=== PATIENT | female | born 1960 | race Caucasian/White ===

== ENCOUNTER 2021-10-17 18:32 | Inpatient (IN) | payer OTHER ==
[~2021-10-17] VITALS: Ht 165.1 cm; Wt 77.0 kg
[~2021-10-17 18:32] MED LIST: HYDR-1421
[2021-10-17 20:26] LABS: Albumin 2.1 g/dL (3.4-5.0); Calcium 8.7 mg/dL (8.5-10.1); Magnesium 2.6 mg/dL (1.6-2.6)
[2021-10-17 20:35] LABS: Hematocrit 38.1 % (36.0-46.0); Hemoglobin 13.1 g/dL (12.2-16.2); Mean Corpuscular Hemoglobin 32.1 pg (28.0-32.0); Mean Corpuscular Hgb Conc. 34.5 g/dL (32.0-36.0); Mean Corpuscular Volume 93.1 fL (80.0-100.0); Red Blood Cells 4.09 10^6/uL (4.0-5.20); White Blood Cell 14.3 10^3/uL (4.4-10.8)
[2021-10-17 20:37] LABS: Acetaminophen < 2.0 ug/mL (10-30); Salicylate < 1.7 mg/dL (2.8-20.0)
[2021-10-17 20:41] LABS: BUN/Creatinine Ratio 23.7; Bilirubin, Total 23.9 mg/dL (0.2-1.0); Total Protein 6.3 g/dL (6.4-8.2)
[2021-10-17 20:48] LABS: Red Cell Distribution Width 24.3 % (11.8-14.3)
[2021-10-17 20:49] LABS: Basophils % (manual) 0 (0.0-2.0); Blast Cells 0; Metamyelocytes % 0; Myelocytes % 0; Promyelocytes % 0; Reactive Lymphocytes 0
[2021-10-17 20:52] LABS: Band Neutrophils % (manual) 1; Eosinophils % (manual) 7 (0-7); Lymphocytes % (manual) 31 (10.0-50.0); Monocytes % (manual) 16 (0-12)
[2021-10-17 21:02] LABS: INR 4.51 (0.9-1.15)
[2021-10-17] MEDS ORDERED: ACETYLCYSTEINE IV ONE ×2 (22:00→23:00)
[2021-10-17] MEDS ORDERED: D5W 5% IV ONE ×2 (22:00→23:00)
[2021-10-18] MEDS: D5W 5% IV SCH ×2 (03:41→19:30)
[2021-10-18] MEDS: ACETYLCYSTEINE IV SCH ×2 (03:41→19:30)
[2021-10-18] MEDS ORDERED: MIDAZOLAM HCL 5 MG/ML-1ML VIAL IV ONE (10:45)
[2021-10-18] MEDS: MIDAZOLAM DRIP 50 mg/50mL 50 ML IV SCH (10:45)
[2021-10-18 11:45] LABS: Basophils # (auto) 0.1 10 ^3/uL (0-0.2); Basophils % (auto) 0.8 % (0.0-2.0); Eosinophils # (auto) 0.2 10 ^3/uL (0-0.8); Eosinophils % (auto) 1.7 % (0.0-7.0); Hematocrit 35.9 % (36.0-46.0); Hemoglobin 12.7 g/dL (12.2-16.2); Mean Corpuscular Hemoglobin 33.3 pg (28.0-32.0); Mean Corpuscular Hgb Conc. 35.3 g/dL (32.0-36.0); Mean Corpuscular Volume 94.3 fL (80.0-100.0); Neutrophils # (auto) 7.4 10 ^3/uL (1.6-8.6); Neutrophils % (auto) 52.4 % (37.0-80.0); Nucleated Red Blood Cells % 0.2 %; Red Blood Cells 3.81 10^6/uL (4.0-5.20); Red Cell Distribution Width 23.7 % (11.8-14.3); White Blood Cell 14.1 10^3/uL (4.4-10.8)
[2021-10-18 11:47] LABS: Lymphocytes # (auto) 3.9 10 ^3/uL (0.4-5.4); Lymphocytes % (auto) 27.7 % (10.0-50.0); Monocytes # (auto) 2.5 10 ^3/uL (0-1.3); Monocytes % (auto) 17.4 % (0.0-12.0)
[2021-10-18 12:08] LABS: Albumin 1.7 g/dL (3.4-5.0); BUN/Creatinine Ratio 25.6; Calcium 8.4 mg/dL (8.5-10.1); Potassium 3.8 mmol/L (3.5-5.1)
[2021-10-18 12:09] LABS: Magnesium 2.6 mg/dL (1.6-2.6)
[2021-10-18 12:17] LABS: Bilirubin, Total 23.9 mg/dL (0.2-1.0); Total Protein 5.7 g/dL (6.4-8.2)
[2021-10-18 12:58] LABS: Alcohol, Urine < 3.0 mg/dL (0-10); Barbiturate Scree,Urine NEGATIVE (NEGATIVE); Benzodiazephine Screen, Urine NEGATIVE (NEGATIVE); Cannabinoid Screen, Urine NEGATIVE (NEGATIVE); Cocaine Screen, Urine NEGATIVE (NEGATIVE); Opiate Scree,Urine NEGATIVE (NEGATIVE)
[2021-10-18 13:23] LABS: Amphetamine Screen, Urine POSITIVE (NEGATIVE); Phencyclidine Screen, Urine NEGATIVE (NEGATIVE)
[2021-10-18 14:40] LABS: Partial Thromboplastin Time 54.3 sec (23.6-33.0)
[2021-10-18 14:45] LABS: INR 5.2 (0.9-1.15)
[2021-10-18] MEDS ORDERED: MORPHINE SULFATE INJECTION 2 MG/ML SYRG IV PRN (19:45)
[2021-10-18] MEDS ORDERED: NITROGLYCERIN 0.4 MG SL TAB SL PRN (19:45)
[2021-10-18] MEDS ORDERED: SODIUM CHLORIDE 0.9% 1,000 ML IV ONE (19:45)
[2021-10-18] MEDS ORDERED: hydrALAZINE HCL 20 MG/ML VL IV PRN (20:15)
[2021-10-18] MEDS: ALBUMIN 25% 100 ML IV SCH (22:21)
[2021-10-19] VITALS (39 sets, daily range): BP systolic 108–160; BP diastolic 36–70
[2021-10-19] MEDS: ALBUMIN 25% 100 ML IV SCH ×2 (04:19→14:00)
[2021-10-19] MEDS: PANTOPRAZOLE 40 MG/10 ML VIAL INJ IV SCH (09:20)
[2021-10-19] MEDS: levoFLOXacin 250MG 50 ML IV SCH (09:20)
[2021-10-19] MEDS: MIDAZOLAM DRIP 50 mg/50mL 50 ML IV SCH (10:45)
[2021-10-19 10:52] LABS: Basophils # (auto) 0.1 10 ^3/uL (0-0.2); Basophils % (auto) 0.4 % (0.0-2.0); Eosinophils # (auto) 0.1 10 ^3/uL (0-0.8); Eosinophils % (auto) 0.7 % (0.0-7.0); Hematocrit 33.3 % (36.0-46.0); Hemoglobin 11.7 g/dL (12.2-16.2); Lymphocytes # (auto) 2.5 10 ^3/uL (0.4-5.4); Lymphocytes % (auto) 19.9 % (10.0-50.0); Mean Corpuscular Hemoglobin 32.8 pg (28.0-32.0); Mean Corpuscular Volume 93.5 fL (80.0-100.0); Monocytes # (auto) 2.1 10 ^3/uL (0-1.3); Monocytes % (auto) 17.2 % (0.0-12.0); Neutrophils # (auto) 7.7 10 ^3/uL (1.6-8.6); Neutrophils % (auto) 61.8 % (37.0-80.0); Nucleated Red Blood Cells % 0.2 %; Red Blood Cells 3.56 10^6/uL (4.0-5.20); White Blood Cell 12.5 10^3/uL (4.4-10.8)
[2021-10-19 11:03] LABS: Albumin 2.8 g/dL (3.4-5.0); Potassium 4.1 mmol/L (3.5-5.1)
[2021-10-19 11:18] LABS: BUN/Creatinine Ratio 27.1; Bilirubin, Total 25.6 mg/dL (0.2-1.0)
[2021-10-19 11:48] LABS: Red Cell Distribution Width 24.3 % (11.8-14.3)
[2021-10-19] MEDS ORDERED: DEXTROSE 50% SYRINGE 50 ML IV ONE (12:02)
[2021-10-19] MEDS ORDERED: DEXTROSE 10% 1,000 ML IV ONE (13:30)
[2021-10-19] MEDS: LACTULOSE 10g/15ml SOLN PR SCH ×2 (15:20→23:11)
[2021-10-19] MEDS ORDERED: phytonadione 10 MG in SODIUM CHL 0.9% 50 ML IV ONE (18:00)
[2021-10-19] MEDS: FOLIC ACID 1 MG, MULTIPLE VITAMIN 10 ML, MAGNESIUM SULF SDV 50% 8 MEQ, THIAMINE INJ 100... INJ SCH ×5 (20:16)
[2021-10-20] VITALS (15 sets, daily range): BP systolic 116–150; BP diastolic 51–78
[2021-10-20] MEDS ORDERED: DEXTROSE 10% 250 ML IV ONE ×2 (00:41→00:43)
[2021-10-20 04:44] LABS: Hematocrit 28.7 % (36.0-46.0); Hemoglobin 10.2 g/dL (12.2-16.2); Mean Corpuscular Hemoglobin 33.7 pg (28.0-32.0); Mean Corpuscular Hgb Conc. 35.7 g/dL (32.0-36.0); Mean Corpuscular Volume 94.5 fL (80.0-100.0); Red Blood Cells 3.03 10^6/uL (4.0-5.20); White Blood Cell 24.6 10^3/uL (4.4-10.8)
[2021-10-20 04:46] LABS: Basophils % (manual) 0 (0.0-2.0); Blast Cells 0; Metamyelocytes % 0; Myelocytes % 0; Promyelocytes % 0; Reactive Lymphocytes 0
[2021-10-20 05:07] LABS: Albumin 2.6 g/dL (3.4-5.0); BUN/Creatinine Ratio 27.8; Bilirubin, Total 25.9 mg/dL (0.2-1.0); Calcium 8.5 mg/dL (8.5-10.1); Total Protein 5.1 g/dL (6.4-8.2)
[2021-10-20] MEDS: LACTULOSE 10g/15ml SOLN PR SCH ×2 (05:14→12:00)
[2021-10-20 05:16] LABS: Potassium 2.9 mmol/L (3.5-5.1)
[2021-10-20 06:58] LABS: Band Neutrophils % (manual) 3; Eosinophils % (manual) 1 (0-7); Lymphocytes % (manual) 18 (10.0-50.0); Monocytes % (manual) 10 (0-12)
[2021-10-20] MEDS: POTASSIUM CHL 20MEQ/100ML 100 ML IV SCH ×2 (08:15→10:15)
[2021-10-20] MEDS: levoFLOXacin 250MG 50 ML IV SCH (10:00)
[2021-10-20] MEDS: PANTOPRAZOLE 40 MG/10 ML VIAL INJ IV SCH (10:00)
[2021-10-20] MEDS: PIPERACILLIN-TAZOB 2.25GM 50 ML IV SCH (18:00)
[2021-10-20] MEDS: FOLIC ACID 1 MG, MULTIPLE VITAMIN 10 ML, MAGNESIUM SULF SDV 50% 8 MEQ, THIAMINE INJ 100... INJ SCH ×5 (21:00)
[2021-10-20 23:36] LABS: INR 4.6 (0.9-1.15)
[2021-10-21] MEDS: LACTULOSE 20Gm/30ML SOLN NG SCH ×4 (00:25→11:08)
[2021-10-21] MEDS: PIPERACILLIN-TAZOB 2.25GM 50 ML IV SCH ×3 (00:26→12:30)
[2021-10-21] MEDS ORDERED: SULF500T8 PO (04:11)
[2021-10-21] MEDS ORDERED: MELO1TAB56 PO (04:23)
[2021-10-21] MEDS ORDERED: HYDR-3682 PO (04:23)
[2021-10-21] MEDS ORDERED: IBUP800T27 PO (04:23)
[2021-10-21] MEDS ORDERED: ENAL2.5T7 PO (04:23)
[2021-10-21] MEDS ORDERED: INDO50CA82 PO (04:25)
[2021-10-21 04:37] VITALS: BP 141/63
[2021-10-21 05:17] LABS: Hemoglobin 10.2 g/dL (12.2-16.2)
[2021-10-21 05:19] LABS: Mean Corpuscular Hemoglobin 32.8 pg (28.0-32.0); Mean Corpuscular Hgb Conc. 35.2 g/dL (32.0-36.0); Mean Corpuscular Volume 93.3 fL (80.0-100.0); Red Blood Cells 3.11 10^6/uL (4.0-5.20)
[2021-10-21 05:24] LABS: Red Cell Distribution Width 24.1 % (11.8-14.3)
[2021-10-21 05:25] LABS: White Blood Cell 31.8 10^3/uL (4.4-10.8)
[2021-10-21 05:27] LABS: Basophils % (manual) 0 (0.0-2.0); Blast Cells 0; Eosinophils % (manual) 0 (0-7); Metamyelocytes % 0; Myelocytes % 0; Promyelocytes % 0; Reactive Lymphocytes 0
[2021-10-21 05:31] LABS: Albumin 2.3 g/dL (3.4-5.0); Calcium 8.7 mg/dL (8.5-10.1); Potassium 3.8 mmol/L (3.5-5.1)
[2021-10-21 05:33] LABS: BUN/Creatinine Ratio 26.4
[2021-10-21 05:45] LABS: Bilirubin, Total 27.6 mg/dL (0.2-1.0); Total Protein 4.9 g/dL (6.4-8.2)
[2021-10-21 06:13] LABS: Band Neutrophils % (manual) 2; Lymphocytes % (manual) 3 (10.0-50.0); Monocytes % (manual) 6 (0-12)
[2021-10-21] MEDS ORDERED: LORazepam 2MG/ML-1ML VIAL IV ONE (09:00)
[2021-10-21 09:26] VITALS: BP 101/43
[2021-10-21 09:33] VITALS: BP 154/75
[2021-10-21] MEDS ORDERED: FOLIC ACID 1 MG, MULTIPLE VITAMIN 10 ML, MAGNESIUM SULF SDV 50% 8 MEQ, THIAMINE INJ 100... INJ SCH ×5 (10:00)
[2021-10-21] MEDS ORDERED: rifAXIMin 550 MG TAB PO SCH (10:00)
[2021-10-21] MEDS: PANTOPRAZOLE 40 MG/10 ML VIAL INJ IV SCH (11:07)
[2021-10-21] MEDS ORDERED: ETOMIDATE (2MG/ML) 20ML VIAL IV ONE (15:04)
[2021-10-21] MEDS ORDERED: ROCURONIUM 10MG/ML 10ML VIAL IV ONE (15:04)
[2021-10-21 15:07] VITALS: BP 126/63
[2021-10-21] MEDS ORDERED: PROPOFOL 100 ML IV ONE (15:23)
[2021-10-21] MEDS ORDERED: NOREPINEPHRINE 8 MG/250ML KIT 250 ML IV ONE (15:23)
[2021-10-21] MEDS ORDERED: PROPOFOL 100 ML IV SCH (15:30)
[2021-10-21] MEDS ORDERED: MIDAZOLAM DRIP 50 mg/50mL 50 ML IV SCH (15:30)
[2021-10-21] MEDS ORDERED: NOREPINEPHRINE 8 MG/250ML KIT 250 ML IV SCH (15:30)
[2021-10-21] MEDS ORDERED: fentaNYL Drip 2500mCg/250mlNS 250 ML IV SCH (15:30)
[2021-10-21] MEDS ORDERED: VASOPRESSIN 50 UNITS in D5W 5% 247.5 ML IV SCH (17:00)
[2021-10-21 17:13] VITALS: BP 109/52
[2021-10-21 17:15] LABS: INR 5.6 (0.9-1.15)
[2021-10-21 17:16] LABS: Partial Thromboplastin Time > 139.0 sec (23.6-33.0)
[2021-10-21] MEDS ORDERED: DEXTROSE (50%) 50ML SYRG IV ONE (23:19)
[2021-10-21] MEDS ORDERED: EPINEPHrine HCL 1 MG/10 ML SYRG IV ONE (23:19)
[2021-10-21] MEDS ORDERED: SODIUM BICARBONATE 8.4% INJ 50ML SYRINGE IV ONE (23:19)
[2021-10-21] MEDS ORDERED: ATROPINE SULF 1 MG/10ml SYR IM ONE (23:19)
[2021-10-23 16:43] LABS: Hepatitis A Ab IgM Negative; Hepatitis B Core IgM Negative; Hepatitis C Antibody Negative (Negative)
== END 2021-10-21 23:20 | DRG 871 ==
LOC: EDBD 18:32 → ER 18:36 → TELE 10-18 19:44 → ICU WEST 10-18 23:43 → TELE-CENTR 10-20 14:37 → ICU WEST 10-21 15:35
PROVIDERS: ADMIT Internal Medicine; ATTEND Internal Medicine
PROC: 5A1935Z Respiratory Ventilation, Less than 24 Consecutive Hours (ICD-10-PCS; principal; 2021-10-21)
PROC: 0BH17EZ Insertion of Endotracheal Airway into Trachea, Via Natural or Artificial Opening (ICD-10-PCS; 2021-10-21)
PROC: 5A12012 Performance of Cardiac Output, Single, Manual (ICD-10-PCS; 2021-10-21)
PROC: 06HY33Z Insertion of Infusion Device into Lower Vein, Percutaneous Approach (ICD-10-PCS; 2021-10-21)
PROC: B44FZZZ Ultrasonography of Right Lower Extremity Arteries (ICD-10-PCS; 2021-10-21)
DX: A41.9 Sepsis, unspecified organism (principal); K72.01 Acute and subacute hepatic failure with coma; J18.9 Pneumonia, unspecified organism; G92.8 Other toxic encephalopathy; B17.9 Acute viral hepatitis, unspecified; D68.9 Coagulation defect, unspecified; I85.10 Secondary esophageal varices without bleeding; J81.1 Chronic pulmonary edema; N17.9 Acute kidney failure, unspecified; E72.20 Disorder of urea cycle metabolism, unspecified; K70.30 Alcoholic cirrhosis of liver without ascites; I10 Essential (primary) hypertension; F10.129 Alcohol abuse with intoxication, unspecified; F15.129 Other stimulant abuse with intoxication, unspecified; Z20.822 Contact with and (suspected) exposure to COVID-19; F32.A Depression, unspecified; I46.9 Cardiac arrest, cause unspecified
CPT/HCPCS: 36415; 36600; 70450; 71045; 74176; 76705; 80053; 80074; 80307; 80320; 80329; 82105; 82140; 82728; 82805; 82962; 83516; 83690; 83735; 84100; 85007; 85025; 85027; 85610; 85730; 86225; 86235; 86850; 86900; 86901; 87040; 87070; 87077; 87081; 87186; 87205; 92950; 93306; 96365; 96366; C9113; G0378; J2250; J2543; J2704; J3430; J3480; J7060; P9047